=== PATIENT | female | born 1950 | race Caucasian/White ===

== ENCOUNTER → 2017-11-17 | Outpatient (CLI) | payer OTHER, MEDICARE | LOC: BMCIMAGING 14:59 | PROVIDERS: ATTEND Internal Medicine | DX: N28.9 Disorder of kidney and ureter, unspecified (principal) ==

== ENCOUNTER → 2017-11-23 | Outpatient (CLI) | payer OTHER, MEDICARE | LOC: FIMAGING 18:44 | PROVIDERS: ATTEND Orthopaedic Surgery | DX: M23.221 Derangement of posterior horn of medial meniscus due to old tear or injury, right knee (principal); M23.241 Derangement of anterior horn of lateral meniscus due to old tear or injury, right knee; M17.11 Unilateral primary osteoarthritis, right knee; M71.21 Synovial cyst of popliteal space [Baker], right knee; M25.461 Effusion, right knee; M25.561 Pain in right knee; M23.41 Loose body in knee, right knee ==

== ENCOUNTER → 2018-01-29 | Outpatient (CLI) | payer OTHER, MEDICARE | LOC: BMCIMAGING 08:18 | PROVIDERS: ATTEND Internal Medicine | DX: Z12.31 Encounter for screening mammogram for malignant neoplasm of breast (principal) ==

== ENCOUNTER → 2018-08-09 | Outpatient (CLI) | payer OTHER, MEDICARE | LOC: BMCIMAGING 11:00 | PROVIDERS: ATTEND Podiatrist Foot & Ankle Surgery | DX: M19.072 Primary osteoarthritis, left ankle and foot (principal) ==

== ENCOUNTER → 2018-08-10 | Outpatient (CLI) | payer OTHER, MEDICARE | LOC: FIMAGING 11:06 | PROVIDERS: ATTEND Podiatrist Foot & Ankle Surgery | DX: M25.872 Other specified joint disorders, left ankle and foot (principal) ==

== ENCOUNTER → 2018-10-08 | Outpatient (CLI) | payer OTHER, MEDICARE | LOC: FIMAGING 11:04 | PROVIDERS: ATTEND Orthopaedic Surgery | DX: Z01.818 Encounter for other preprocedural examination (principal); M17.11 Unilateral primary osteoarthritis, right knee; M71.21 Synovial cyst of popliteal space [Baker], right knee ==

== ENCOUNTER 2018-11-05 09:06 | Observation (INO) | payer OTHER, MEDICARE ==
--- NOTE | 2018-11-05 06:38 | PDHPUP ---
History & Physical Update H&P update statement: This history and physical update is based on an assessment of the patient which was completed after admission or registration (within 24 hours), but prior to the surgery/procedure. H&P update: no change in patient's condition since H&P completed
--- NOTE | 2018-11-05 06:38 | PDGENHP ---
History & Physical Chief Complaint: right knee pain History of Present Illness: progression of right knee pain despite attempted conservative measures. here today electively for tka Pertinent Past, Social, Family History: see chart Relevant Physical Exam: pain across knee. 5-120 deg rom. stable varus and valgus. xrays with advance djd Cardiorespiratory Assessment: good
[~2018-11-05 09:06] MED LIST: ROPIVACAINE 0.2% 80 MG, EPINEPHrine 0.2 MG, KETOROLAC TROMETHAMINE 30 MG, morphINE 10 M... IU ONE; TRANEXAMIC ACID 1,000 MG in NS 100 ML IV ONE
[2018-11-05] MEDS ORDERED: CALCIUM CHLORIDE 1 GM/10 ML INJ ONE (09:07)
[2018-11-05] MEDS ORDERED: THROMBIN (BOVINE) 5,000 UNIT VIAL TP ONE (09:07)
[2018-11-05] MEDS ORDERED: ceFAZolin 1 GM/5 ML SYR ONE (09:08)
[2018-11-05] MEDS ORDERED: ACETAMINOPHEN 325 MG TAB PO ONE (09:30)
[2018-11-05] MEDS ORDERED: FAMOTIDINE 20 MG TAB PO ONE (09:30)
[2018-11-05] MEDS ORDERED: LR 1,000 ML IV ONE (09:30)
[2018-11-05] MEDS ORDERED: ceFAZolin 2 GM/DEXTROSE 100 ML IV ONE (09:30)
[2018-11-05] MEDS ORDERED: MIDAZOLAM 2 MG/2 ML VIAL ONE (10:26)
[2018-11-05] MEDS ORDERED: MIDAZOLAM 2 MG/2 ML VIAL IVP ONE (10:27)
--- NOTE | 2018-11-05 10:27 | PDANEPAE ---
ANE History of Present Illness 68 year old female with hypertension for right total knee arthroplasty. ANE Past Medical History - Cardiovascular History Hx Hypertension: Yes Hx Arrhythmias: No Hx Chest Pain: No Hx Coronary Artery / Peripheral Vascular Disease: No Hx CHF / Valvular Disease: No Hx Palpitations: No Cardiovascular History Comment: pcp monitors bp medications - Pulmonary History Hx COPD: No Hx Asthma/Reactive Airway Disease: No Hx Recent Upper Respiratory Infection: No Hx Oxygen in Use at Home: No Hx Sleep Apnea: No Sleep Apnea Screening Result - Last Documented: Positive Pulmonary History Comment: diana triggers - Neurologic History Hx Cerebrovascular Accident: No Hx Seizures: No Hx Dementia: No - Endocrine History Hx Diabetes: No - Renal History Hx Renal Disorders: Yes Renal History Comment: chronic renal insufficency. pcp is aware of slightly elevated creatinine - Liver History Hx Hepatic Disorders: No - Neurological & Psychiatric Hx Hx Neurological and Psychiatric Disorders: No - Cancer History Hx Cancer: Yes Cancer History Comment: skin ca- a couple of spots have been removed - Congenital Disorder History Hx Congenital Disorders: No - GI History Hx Gastrointestinal Disorders: No - Other Health History Other Health History: wears glasses/ contacts - Chronic Pain History Chronic Pain: Yes (bilateral knees) - Surgical History Prior Surgeries: ovarian cyst ruptured in in 1970's ANE Review of Systems Review of systems is: negative Review of Systems: - Exercise capacity METS (RN): 4 METS ANE Patient History - Allergies Allergies/Adverse Reactions: ciprofloxacin [From Cipro] Allergy (Verified 10/16/18 16:41) hallucinations - Home Medications Home Medications: Aspirin [Aspirin 81mg (*)] 81 mg PO DAILY 10/02/18 [Last Taken 1 Week Ago ~10/29] Atenolol [Tenormin 50 mg (*)] 50 mg PO DAILY 10/02/18 [Last Taken 11/05/18] Bimatoprost 0.01% [Lumigan 0.01% (*)] 1 drops EACHEYE HS 10/02/18 [Last Taken ] amLODIPine BESYLATE [Norvasc 5 mg (*)] 5 mg PO HS 10/02/18 [Last Taken 11/04/18] - NPO status NPO Since - Liquids (Date): 11/05/18 NPO Since - Liquids (Time): 06:00 NPO Since - Solids (Date): 11/04/18 NPO Since - Solids (Time): 16:30 - Smoking Hx Smoking Status: Never smoked - Family Anes Hx Family Hx Anesthesia Complications: none ANE Labs/Vital Signs - Vital Signs Blood Pressure: 141/88 Heart Rate: 69 Respiratory Rate: 16 O2 Sat (%): 95 Height: 157.48 cm Weight: 90.718 kg ANE Physical Exam - Airway Neck exam: FROM Mallampati Score: Class 2 Mouth exam: normal dental/mouth exam - Pulmonary Pulmonary: no respiratory distress - Cardiovascular Cardiovascular: regular rate and rhythym - ASA Status ASA Status: II ANE Anesthesia Plan Anesthesia Plan: spinal
[2018-11-05] MEDS ORDERED: PROPOFOL/EMULSION 500 MG/50 ML BOTTLE IV ONE (10:32)
[2018-11-05] MEDS ORDERED: fentaNYL 250 MCG/5 ML INJ ONE (10:37)
[2018-11-05] MEDS ORDERED: BUPIVACAINE 0.5% 30 ML SDV ONE (11:41)
[2018-11-05] MEDS ORDERED: ONDANSETRON 4 MG/2 ML VIAL IVP PRN ×2 (11:44→11:58)
[2018-11-05] MEDS ORDERED: oxyCODONE IR 5 MG TAB PO PRN (11:44)
[2018-11-05] MEDS ORDERED: fentaNYL 100 MCG/2 ML INJ IVP PRN (11:44)
[2018-11-05] MEDS ORDERED: ALBUTEROL 3 ML DEYVIAL IH PRN (11:44)
[2018-11-05] MEDS ORDERED: LABETALOL HCL 5 MG/ML 20 ML MDV IVP PRN (11:44)
[2018-11-05] MEDS ORDERED: DEXAMETHASONE 4 MG/ML VIAL IVP PRN (11:44)
[2018-11-05] MEDS ORDERED: LR 500 ML IV PRN (11:44)
[2018-11-05] MEDS ORDERED: PHENYLEPHRINE HCL 100 MCG/ML SYR IVP PRN (11:44)
[2018-11-05] MEDS ORDERED: HYDROmorphONE/DILAUDID 1 MG/ML INJ IVP PRN (11:44)
[2018-11-05] MEDS ORDERED: NALOXONE HCL 0.4 MG/ML INJ IVP PRN (11:44)
[2018-11-05] MEDS ORDERED: TEMAZEPAM 15 MG CAP PO PRN (11:58)
[2018-11-05] MEDS ORDERED: LACTULOSE 20 GM/30 ML UDCUP PO PRN (11:58)
[2018-11-05] MEDS ORDERED: BISACODYL 10 MG SUPP PR PRN (11:58)
[2018-11-05] MEDS ORDERED: MAGNESIUM HYDROXIDE 30 ML UDCUP PO PRN (11:58)
[2018-11-05] MEDS ORDERED: PROMETHAZINE HCL 25 MG SUPPR PR PRN (11:58)
[2018-11-05] MEDS ORDERED: DIPHENOXYLATE/ATROPINE LOMOTIL 1 TAB PO PRN (11:58)
[2018-11-05] MEDS ORDERED: CYCLOBENZAPRINE 10 MG TAB PO PRN (11:58)
[2018-11-05] MEDS ORDERED: diphenhydrAMINE 25 MG CAP PO PRN (11:58)
[2018-11-05] MEDS ORDERED: PROMETHAZINE HCL 25 MG/ML INJ IVP PRN (11:58)
[2018-11-05] MEDS ORDERED: POLYETHYLENE GLYCOL 3350 17 GM PKT PO PRN (11:58)
[2018-11-05] MEDS ORDERED: METOCLOPRAMIDE 10 MG/2 ML VIAL IVP PRN (11:58)
--- NOTE | 2018-11-05 11:58 | POSTOPPROG ---
Post Op Note Date of Operation: 11/05/18 Surgeon: Santiago Fernandez [employer] Equipment Repairer: ivanna Anesthesiologist: marilu Anesthesia: Spinal Pre-op Diagnosis: right knee djd Post-op Diagnosis: same Indication: same Procedure: right knee tka Inf/Abcess present in the surg proc area at time of surgery?: No Depth: Deep Incisional (Fascial) EBL: 100-500
[2018-11-05] MEDS ORDERED: LR 1,000 ML IV SCH (12:00)
--- NOTE | 2018-11-05 12:47 | POSTANESTH ---
Post Anesthetic Evaluation Cardiovascular Status: Normal, Stable Respiratory Status: Normal, Stable Level of Consciousness/Mental Status: Can Participate in Eval Pain Control: Adequate, Prn Tx Ordered Nausea/Vomiting Control: Adequate, Prn Tx Ordered Complications Possibly Related to Anesthesia: None Noted
[2018-11-05] MEDS: ONDANSETRON DISINTEGRATING 4 MG TAB PO PRN ×2 (13:14→19:29)
[2018-11-05] MEDS: ATENOLOL 50 MG TAB PO SCH (13:14)
--- NOTE | 2018-11-05 16:15 | SOAPPROG ---
<Santiago Fernandez J - Last Filed: 11/06/18 12:18> SOAP Progress Note Assessment/Plan: Assessment: Plan: Objective: Vital Signs Temp Pulse Resp BP Pulse Ox 36.8 C 61 14 122/70 H 92 11/06/18 07:36 11/06/18 09:14 11/06/18 07:36 11/06/18 09:14 11/06/18 07:36 Laboratory Results 11/06/18 04:48 11/05/18 11/06/18 11/07/18 05:59 05:59 05:59 Intake Total 2700 Output Total 650 600 Balance 2050 -600 ICD10 Worksheet Patient Problems: Problems Problem Status Onset Unilateral primary osteoarthritis, right knee Acute <SabaTayo [email or web address] D - Last Filed: 11/06/18 15:17> SOAP Progress Note Assessment/Plan: Assessment/Plan: Patient s/p right TKA robotic assist this morning Likely discharge tomorrow home with home health Continue pain medication, currently well controlled Continue VTE ppx with ASA 325 mg once daily x 6 weeks, JIM eid, SCDs Continue PT efforts Subjective: Patient states she is feeling good, states she is feeling less anxious now after having surgery. She plans to go home with home health and then will start outpatient PT about 2 weeks post-operative. She will have support from friends at home. Patient reports having the urge to urinate. She denies shortness of breath, chest pain, fever and chills. Objective: Vital Signs Temp Pulse Resp BP Pulse Ox 35.9 C L 62 14 126/71 H 95 11/05/18 15:10 11/05/18 15:10 11/05/18 15:10 11/05/18 15:10 11/05/18 15:10 11/04/18 11/05/18 11/06/18 05:59 05:59 05:59 Intake Total 950 Balance 950 Patient resting comfortably in bed. RLE: Surgical wound dressings are clean, dry and intact. Calf is soft and nontender. She can actively dorsiflex her right foot and great toe. Grossly NVI distally.
[2018-11-05] MEDS: oxyCODONE IR 5 MG TAB PO PRN (16:54)
[2018-11-05] MEDS: ACETAMINOPHEN 325 MG TAB PO SCH (17:52)
[2018-11-05] MEDS: ceFAZolin 2 GM/DEXTROSE 100 ML IV SCH (17:52)
[2018-11-05] MEDS: TRANEXAMIC ACID 650 MG TAB PO SCH (20:52)
[2018-11-05] MEDS: ASPIRIN 325 MG TAB PO SCH (20:54)
[2018-11-05] MEDS: FAMOTIDINE 20 MG TAB PO SCH (20:54)
[2018-11-05] MEDS: SENNOSIDES/DOCUSATE SODIUM TAB PO SCH (20:54)
[2018-11-05] MEDS ORDERED: amLODIPine BESYLATE 5 MG TAB PO SCH (21:00)
[2018-11-05] MEDS ORDERED: BIMATOPROST 0.01% 2.5 ML OPHT.BTL EACHEYE SCH (21:00)
[2018-11-06] MEDS: ACETAMINOPHEN 325 MG TAB PO SCH ×2 (00:27→04:55)
[2018-11-06] MEDS: ceFAZolin 2 GM/DEXTROSE 100 ML IV SCH (02:06)
[2018-11-06] MEDS: TRANEXAMIC ACID 650 MG TAB PO SCH (04:56)
--- NOTE | 2018-11-06 07:33 | PDIAF ---
- Diagnosis Code Status: Full Code - Medication Management Discharge Medications: electronically signed and located in the Home Medication List. - Orders Diet Recommendation: no restrictions on diet Diet Texture: Regular Texture Diet Additional Instructions: TOTAL JOINT ARTHROPLASTY DISCHARGE INSTRUCTIONS 1. Your surgeon follows the [facility] protocol for reducing your risk of DVT (blood clots) following surgery. Medication will be ordered to prevent blood clots. A sudden increase in calf pain and/or swelling could indicate a blood clot in your leg. If this occurs, please call your surgeon or his/her assistant chief train dispatcher. An ultrasound of the leg may be necessary to diagnose a blood clot. If you have conditions that make you a higher risk for blood clots, your surgeon may use more aggressive ways to prevent them. Notify your surgeon if you think you are a high risk for blood clots. 2. Wear your white surgical stockings (JIM hose) for 2 weeks. This decreases your swelling and may help prevent blood clots. It is ok to remove JIM hose at night time to give your legs a break. 3. Swelling and bruising in the surgical leg is common. If you feel that it is excessive, please notify your surgeon. 4. Elevate your surgical leg with the ankle above the hip several times every day. Please keep the leg straight when you elevate by putting pillows under your foot. Do not put pillows under your knee. This will make being able to fully straighten more difficult. This is uncomfortable, but try to do it as much as possible. 5. For total knee replacements use compressive wrap on your knee for 3-5 days after surgery, then you can discontinue it. 6. Use a walker or crutches for 1-2 weeks. Progress your weight-bearing as tolerated. You may start to use a cane when you feel stable and safe. 7. You will receive physical therapy instructions in the hospital. Continue those exercises at home. There are additional exercises in the total joint booklet you were given before surgery. Outpatient physical therapy will begin 7- 10 days after surgery. Please schedule this in advance. 8. Use ice on your knee at least 3-5 times every day for 30 minutes. This helps reduce pain and swelling. Also use it at night before falling asleep. 9. Leave your surgical dressing in place for 2 weeks. Your dressing is water resistant, but not waterproof. Cover it with Saran Wrap or Vabzv-t-Cnof before showering. You may shower as soon as you feel safe entering a shower. If you notice bleeding from your incision 2 or 3 days after surgery, please notify your surgeon. 10. Due to narcotics, decreased activity and altered diet, most patients experience constipation after surgery. Use [id number] stool softeners while you are on narcotics. 11. You may drive a car when you are comfortable bearing weight, have good muscular control of your leg and are off narcotics. This usually occurs 2-4 weeks after surgery, depending on which leg was operated on. 12. If there are questions not addressed here, please refer the [facility] book given for more information. If you still have questions, please contact your surgeon s office. 13. If you have a life-threatening emergency, please call 911 and go to the emergency room immediately. For non-life threatening emergencies, please call your physicians office for advice before going to the emergency room. - Follow Up Care Current Providers and Referrals: Darlene Dwyer MD [Primary Care Provider] - Santiago Fernandez MD [Medical Doctor] -
[2018-11-06 07:36] VITALS: BP 122/70
[2018-11-06] MEDS: FAMOTIDINE 20 MG TAB PO SCH (09:13)
[2018-11-06] MEDS: SENNOSIDES/DOCUSATE SODIUM TAB PO SCH (09:13)
[2018-11-06] MEDS: ASPIRIN 325 MG TAB PO SCH (09:14)
[2018-11-06] MEDS: oxyCODONE IR 5 MG TAB PO PRN (09:14)
[2018-11-06] MEDS: ATENOLOL 50 MG TAB PO SCH (09:14)
--- NOTE | 2018-11-06 14:37 | ASDISCHSUM ---
Discharge Information Plan Status:Home with Home Health Medically Cleared to Leave: Discharge Date:11/06/2018 01:38 PM CM D/C Disposition: ADT D/C Disposition:Home Health Service Projected Discharge Date:11/06/2018 11:00 AM Transportation at D/C: Discharge Delay Reason: Follow-Up Date:11/06/2018 11:00 AM Discharge Slot: Final Diagnosis: Placement Information Referral Type:*Home Health Care Services Referral ID:[id number] Provider Name:[facility] ([facility]) Address 1:[address] [address] Address 2: City:[place] Selection Factors: State:[place] Patient Contact Information Contact Name:ELDA Relationship:Sister Address: Work Phone: City: [place] Phone: [facility] Code: Email: Financial Information Financial Class:Medicare Primary Plan Desc:MEDICARE OUTPATIENT Primary Plan Number:[id number] Secondary Plan Desc:[employer]ARP/MDR SUPPLEMENT Secondary Plan Number:[id number] Assessment Information LACE LACE Length of stay for Answers: 2 days current admission Acuity / Level of Answers: Yes Care: Did the patient have an inpatient admission? Comorbidities - select Answers: Opioid dependence all that apply / Chronic pain Other Notes: HTN # of Emergency department Answers: 0 visits in the last 6 months Score: 10 Date Signed: 11/06/2018 02:36 PM Electronically Signed By:KARLA Taylor [facility] CM Progress Note CM Note CM Note Notes: Pt medically stable for d/c with [facility] PT, orders sent in [employer]. Cornelia with [facility] met w pt prior to d/c. Date Signed: 11/06/2018 02:36 PM Electronically Signed By:KARLA Taylor Intervention Information Intervention Type:*Incorrect Registration Date of Service:11/05/2018 05:11 PM Patient Type:Inpatient Staff Member:Nicole Tripp Hours: Discipline: Severity: Comment:
--- NOTE | 2018-11-06 14:54 | SOAPPROG ---
SOAP Progress Note Assessment/Plan: Assessment: s/p Right TKA POD 1 Plan: D/C home WBAT ROM as tolerated Home PT with planner internship DVT precautions reviewed F/U at two weeks Seek attention for increasing pain, swelling or other focal complaint 11/06/18 14:53 Subjective: Patient complains of mild right knee pain. States there is no chest pain or shortness of breath. Patient tolerating oral pain medication and oral diet. Objective: Vital Signs Temp Pulse Resp BP Pulse Ox 36.8 C 61 14 122/70 H 92 11/06/18 07:36 11/06/18 09:14 11/06/18 07:36 11/06/18 09:14 11/06/18 07:36 Laboratory Results 11/06/18 04:48 11/05/18 11/06/18 11/07/18 05:59 05:59 05:59 Intake Total 2700 Output Total 650 600 Balance 2050 -600 RLE: Dressing is clean, dry, intact. Intact PF, DF, EHL. Toes are warm and pink. Negative Homans bilaterally. X-rays reveal stable anatomic alignment, no fracture or lucency.
--- NOTE | 2018-11-06 15:10 | PDDCSUM ---
Discharge Summary Discharge Summary: ADMIT DIAGNOSIS: Right knee degenerative joint disease DISCHARGE DIAGNOSIS: Right knee degenerative joint disease NAME OF PROCEDURE: Right total knee arthroplasty HPI: The patient is a 68 year old female who has end-stage arthritis of her right knee. Clinical and radiographic features are consistent with this. Patient has failed attempts at conservative management, therefore, recommended operative right total knee replacement. HOSPITAL COURSE: Patient was admitted to the hospital floor after uncomplicated right total knee arthroplasty. Patient tolerated the procedure well and had no additional complications. At the time of discharge, patient is tolerating an oral diet, pain is well controlled on oral medications, and is voiding without difficulty. Dressing is clean, dry and intact. There is no swelling or calf tenderness. Patient has intact plantarflexion, dorsiflexion, EHL function. X- rays demonstrate anatomic positioning with no fracture or lucency. DISCHARGE ACTIVITY: Patient is WBAT and can perform ROM as tolerated. Patient was instructed to keep dressing clean, dry and intact. Patient is to seek attention for increasing redness, swelling, drainage or discharge. DISCHARGE MEDICATIONS: oxycodone 5 mg 1-2 every 3 hours prn pain, cyclobenzaprine 10 mg PO every 8 hours prn spasm, Zofran 4 mg orally disintegrating tablet every 8 hours prn nausea, aspirin 325 mg PO daily. FOLLOW-UP: Follow up in 2 weeks. Again, patient is to seek attention for increasing redness, swelling, drainage or discharge.
--- NOTE | 2018-11-06 15:17 | SOAPPROG ---
SOAP Progress Note Assessment/Plan: Assessment: s/p Right TKA POD 1 Plan: D/C home WBAT ROM as tolerated Home PT with financial planner DVT precautions reviewed F/U at two weeks Seek attention for increasing pain, swelling or other focal complaint Subjective: Patient complains of mild right knee pain. States there is no chest pain or shortness of breath. Patient tolerating oral pain medication and oral diet. Objective: Vital Signs Temp Pulse Resp BP Pulse Ox 36.8 C 61 14 122/70 H 92 11/06/18 07:36 11/06/18 09:14 11/06/18 07:36 11/06/18 09:14 11/06/18 07:36 Laboratory Results 11/06/18 04:48 11/05/18 11/06/18 11/07/18 05:59 05:59 05:59 Intake Total 2700 Output Total 650 600 Balance 2050 -600 RLE: Dressing is clean, dry, intact. Intact PF, DF, EHL. Toes are warm and pink. Negative Homans bilaterally. X-rays reveal stable anatomic alignment, no fracture or lucency. ICD10 Worksheet Patient Problems: Problems Problem Status Onset Unilateral primary osteoarthritis, right knee Acute - ICD10 Problem Qualifiers (1) Unilateral primary osteoarthritis, right knee
== END 2018-11-06 13:38 | disposition home health service (06) ==
LOC: EDSEX → INTOOBSV 09:15 → F3N 09:15 → MERGE 12:30 → F3N 13:02
PROVIDERS: ADMIT Orthopaedic Surgery; ATTEND Orthopaedic Surgery
PROC: 8E0YXCZ Robotic Assisted Procedure of Lower Extremity (ICD-10-PCS; principal; 2018-11-05 10:30)
PROC: 3E0U3GC Introduction of Other Therapeutic Substance into Joints, Percutaneous Approach (ICD-10-PCS; principal; 2018-11-05 10:30)
PROC: 6A550Z2 Pheresis of Platelets, Single (ICD-10-PCS; principal; 2018-11-05 10:30)
PROC: 0SRC0JA Replacement of Right Knee Joint with Synthetic Substitute, Uncemented, Open Approach (ICD-10-PCS; principal; 2018-11-05 10:30)
DX: M17.11 Unilateral primary osteoarthritis, right knee (principal); I10 Essential (primary) hypertension; N18.9 Chronic kidney disease, unspecified; Z85.828 Personal history of other malignant neoplasm of skin
CPT/HCPCS: 0232T; 27447; 73560; 88311; 97110; 97116; 97161; 97165; 97530; 97535; C1776; J0171; J0690; J1885; J2250; J2270; J2704; J2795; J3010

== ENCOUNTER → 2018-12-17 | Outpatient (CLI) | payer OTHER, MEDICARE | LOC: BMCIMAGING 09:05 | PROVIDERS: ATTEND Physician Assistant | DX: Z09 Encounter for follow-up examination after completed treatment for conditions other than malignant neoplasm (principal); M25.561 Pain in right knee; Z96.651 Presence of right artificial knee joint ==